=== PATIENT | male | born 1955 | race African-American/Black ===

== ENCOUNTER 2016-11-10 16:51 | Emergency (ER) | payer BC ==
[~2016-11-10] VITALS: Ht 188 cm; Wt 99.8 kg
[2016-11-10] MEDS ORDERED: CRESTOR40 MG PO (17:10)
[2016-11-10 18:52] VITALS: BP 127/91
== END 2016-11-10 18:52 | disposition home or self-care (01) ==
LOC: ER 16:51
DX: S01.01XA Laceration without foreign body of scalp, initial encounter (principal); W22.8XXA Striking against or struck by other objects, initial encounter; Y93.89 Activity, other specified; Y92.89 Other specified places as the place of occurrence of the external cause; Y99.9 Unspecified external cause status; E78.00 Pure hypercholesterolemia, unspecified